=== PATIENT | male | born 1955 | race Caucasian/White ===

== ENCOUNTER 2024-11-29 09:13 | Emergency (ER) | payer OTHER ==
[2024-11-29 11:59] LABS: Urine Bilirubin NEGATIVE (Negative); Urine Blood Negative (Negative); Urine Clarity Clear (Clear); Urine Color Light-Yellow (Yellow); Urine Glucose NEGATIVE (Negative); Urine Ketones NEGATIVE (Negative); Urine Microscopic Reflex YN NO UMIC; Urine Nitrite NEGATIVE (Negative); Urine Protein NEGATIVE (Negative); Urine Urobilinogen Normal (Normal)
[2024-11-29] MEDS ORDERED: ONDANSETRON 4 MG/2 ML VIAL ONE (12:02)
[2024-11-29] MEDS ORDERED: NA CHLORIDE 0.9% 1,000 ML ONE (12:03)
[2024-11-29] MEDS ORDERED: FAMOTIDINE 20 MG/2 ML VIAL IV ONE (12:03)
[2024-11-29 12:04] LABS: Absolute Lymphocytes (CBC) 0.7 K/uL (0.7-4.9); Absolute Monocytes 0.4 K/uL (0.1-1.3); Absolute Neutrophil 11.8 K/uL (1.8-8.0); Basophils % 0.3 % (0-1.3); Eosinophils % 0.3 % (0-4.4); Hematocrit 43.8 % (39.6-49.0); Hemoglobin 14.7 g/dL (13.6-17.9); Lymphocytes % 5.1 % (15.3-44.8); MCH 31.4 pg (27.0-35.0); MCHC 33.6 g/dL (32.0-36.0); MCV 93.4 fL (80-100); MPV 7.9 fL (7.6-11.3); Monocytes % 3.3 % (3.3-12.3); Platelets 296 thou/uL (152-406); RBC Red Blood Cell Count 4.69 M/uL (4.33-5.43); Red Cell Distribution Width 15.1 % (12.1-15.2)
[2024-11-29 12:15] LABS: Albumin 3.5 g/dL (3.4-5.0); Albumin/Globulin Ratio 0.9 (1.1-1.8); Anion Gap 6.9 mEq/L (5.0-15.0); Bilirubin Total 0.9 mg/dL (0.2-1.0); Globulin 4.1 g/dL (2.3-3.5); Potassium 3.9 mEq/L (3.5-5.1); Protein, Total 7.6 g/dL (6.4-8.2)
[2024-11-29 13:02] LABS: Blood Morphology Comment NOT SEEN (NOT SEEN); Platelet Estimate ADEQ; Platelets, Giant NOTED; White Blood Cell Scan OK (OK)
--- NOTE | 2024-11-29 13:22 | RAD REPORT ---
EXAMINATION: CT Abdomen Pelvis W Contrast CLINICAL INDICATION: Male, 69 years old. ABD PAIN TECHNIQUE: CT abdomen and pelvis was performed, after the administration of IV contrast, [facility]. Axial, sagittal and coronal reconstructions were obtained. One or more of the following dose reduction techniques were used: Automated exposure control, adjustment of the mA and k V according to patient size, and iterative reconstruction. Unless otherwise specified, incidental findings do not require dedicated imaging follow-up. COMPARISON: No prior exam. FINDINGS: LOWER CHEST: The visualized lung bases are clear apart from subpleural left lower lobe 3 mm nodule, p robably benign given size. LIVER: Normal in size and contour. No focal lesion. BILIARY SYSTEM: No suspicious abnormalities. SPLEEN: Normal size. No focal lesion. PANCREAS: No mass, ductal dilation, or keshawn-pancreatic fluid. ADRENALS: Normal; no mass. KIDNEYS: Normal size and contour. No hydronephrosis. 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 URINARY BLADDER: Unremarkable. GASTROINTESTINAL TRACT: No evidence of free air, significant intra-abdominal free fluid, bowel obstru ction or abscess. Distal colonic diverticulosis without evidence of acute diverticulitis. APPENDIX: Normal appendix. LYMPH NODES: No lymphadenopathy. MUSCULOSKELETAL: No acute or suspicious osseous abnormality. ADDITIONAL FINDINGS: Mild fusiform aneurysmal dilation of the distal abdominal aorta just above the l evel of the bifurcation measuring up to 2.5 cm in caliber. Small hydrocele at least on the right. IMPRESSION: No acute abnormalities seen in the abdomen or pelvis. Incidental findings including colonic diverticulosis without evidence of acute diverticulitis, mild d istal abdominal aortic fusiform aneurysmal dilation, bilateral nonobstructing small renal calculi, and a small right hydrocele.
--- NOTE | 2024-11-29 13:47 | EDPHYS ---
Physician Documentation [facility] Name: Serjio Barreto Age: 69 yrs Sex: Male : 1955 Arrival Date: 11/29/2024 Time: 09:13 Bed 24 Private MD: ED Physician Julio C Oquendo HPI: 11/29 12:15 This 69 yrs old Male presents to ER via Ambulatory with complaints of hernia. ronnell 12:15 The patient presents with abdominal pain in the lower abdomen. Onset: The ronenll symptoms/episode began/occurred just prior to arrival, this morning. The symptoms do not radiate. Associated signs and symptoms: none. The symptoms are described as sharp. Modifying factors: The symptoms are alleviated by remaining still, supine position, the symptoms are aggravated by movement, pressure, touching the area, walking. Severity of pain: At its worst the pain was moderate in the emergency department the pain has improved self reduced. The patient has not experienced similar symptoms in the past. Historical: - Allergies: 10:15 No Known Allergies; iw - PMHx: 10:15 Hypercholesterolemia; GERD; iw - PSHx: 10:16 hernia; iw - Immunization history:: Adult Immunizations unknown. - Infectious Disease History:: Denies. - Social history:: Smoking status: Patient reports the use of cigarette tobacco products, smokes one pack cigarettes per day. - Family history:: not pertinent. ROS: 12:15 Constitutional: Negative for fever, chills, and weight loss, Eyes: Negative for injury, ronnell pain, redness, and discharge, ENT: Negative for injury, pain, and discharge, Neck: Negative for injury, pain, and swelling, Cardiovascular: Negative for chest pain, palpitations, and edema, Respiratory: Negative for shortness of breath, cough, wheezing, and pleuritic chest pain, Back: Negative for injury and pain, : Negative for injury, bleeding, discharge, and swelling, MS/Extremity: Negative for injury and deformity, Skin: Negative for injury, rash, and discoloration, Neuro: Negative for headache, weakness, numbness, tingling, and seizure, Psych: Negative for depression, anxiety, suicide ideation, homicidal ideation, and hallucinations, Allergy/Immunology: Negative for hives, rash, and allergies, Endocrine: Negative for neck swelling, polydipsia, polyuria, polyphagia, and marked weight changes, Hematologic/Lymphatic: Negative for swollen nodes, abnormal bleeding, and unusual bruising, 12:15 Abdomen/GI: Positive for abdominal pain, of the left lower quadrant, Exam: 12:18 Constitutional: This is a well developed, well nourished patient who is awake, alert, ronnell and in no acute distress. Head/Face: Normocephalic, atraumatic. Eyes: Pupils equal round and reactive to light, extra-ocular motions intact. Lids and lashes normal. Conjunctiva and sclera are non-icteric and not injected. Cornea within normal limits. Periorbital areas with no swelling, redness, or edema. ENT: Nares patent. No nasal discharge, no septal abnormalities noted. Tympanic membranes are normal and external auditory canals are clear. Oropharynx with no redness, swelling, or masses, exudates, or evidence of obstruction, uvula midline. Mucous membranes moist. Neck: Trachea midline, no thyromegaly or masses palpated, and no cervical lymphadenopathy. Supple, full range of motion without nuchal rigidity, or vertebral point tenderness. No Meningismus. Chest/axilla: Normal chest wall appearance and motion. Nontender with no deformity. No lesions are appreciated. Cardiovascular: Regular rate and rhythm with a normal S1 and S2. No gallops, murmurs, or rubs. Normal PMI, no JVD. No pulse deficits. Respiratory: Lungs have equal breath sounds bilaterally, clear to auscultation and percussion. No rales, rhonchi or wheezes noted. No increased work of breathing, no retractions or nasal flaring. Back: No spinal tenderness. No costovertebral tenderness. Full range of motion. Male : Normal genitalia with no discharge or lesions. Skin: Warm, dry with normal turgor. Normal color with no rashes, no lesions, and no evidence of cellulitis. MS/ Extremity: Pulses equal, no cyanosis. Neurovascular intact. Full, normal range of motion., bilateral aka Neuro: Awake and alert, GCS 15, oriented to person, place, time, and situation. Cranial nerves II-XII grossly intact. Motor strength 5/5 in all extremities. Sensory grossly intact. Cerebellar exam normal. Normal gait. Psych: Awake, alert, with orientation to person, place and time. Behavior, mood, and affect are within normal limits. 12:18 Abdomen/GI: Inspection: abdomen appears normal, Bowel sounds: normal, Palpation: abdomen is soft and non-tender, Rectal exam: the exam is deferred, not needed, Liver: no appreciated palpable abnormalities, Hernia: not appreciated, Vital Signs: 10:14 BP 120 / 79; Pulse 73; Resp 18; Temp 97.8; Pulse Ox 100% on R/A; Weight 68.04 kg; iw Height 6 ft. 1 in. ; 12:05 BP 128 / 86; Pulse 70; Resp 16; Pulse Ox 98% ; me1 13:00 BP 130 / 86; Pulse 70; Resp 16; Pulse Ox 98% ; me1 13:55 BP 132 / 79; Pulse 68; Resp 16; Temp 98.4; Pulse Ox 100% ; me1 10:14 Body Mass Index 19.79 (68.04 kg, 185.42 cm) iw MDM: 09:50 Medical Screening Exam initiated ronnell 12:19 Differential diagnosis: bowel obstruction, diverticulitis, non-specific abd pain, ronnell pancreatitis, Peptic Ulcer Disease, Prostatitis, Testicular Torsion, Ureterolithiasis, urinary tract infection, hernia, self reduced. Data reviewed: vital signs, nurses notes, lab test result(s), radiologic studies, CT scan. Consideration of Admission/Observation Escalation of care including admission/observation considered. Independent interpretation of the following test(s) in the Emergency Department CT Scan: My interpretation is ct ab/pel. Test considered but Not performed: Ultrasound no abd usg. Care significantly affected by the following chronic conditions: gerd, high chlesterol. 11/29 09:51 Order name: CBC with Diff; Complete Time: 13:22 [facility] 11/29 09:51 Order name: CMP; Complete Time: 13:22 [facility] 11/29 09:51 Order name: Lipase; Complete Time: 13:22 ronnell 11/29 09:51 Order name: Urinalysis w/ reflexes; Complete Time: 12:14 ronnell 11/29 13:00 Order name: CBC Smear Scan; Complete Time: 13:22 EDMS 11/29 09:51 Order name: CT Abd/Pelvis - IV Contrast Only; Complete Time: 13:47 ronnell 11/29 09:51 Order name: IV Saline Lock; Complete Time: 11:53 ronnell 11/29 09:51 Order name: Labs collected and sent; Complete Time: 11:53 ronnell Administered Medications: 12:11 Drug: Famotidine IVP 20 mg IVP once; dilute with 10 mL 0.9% NaCl; give over 2 minutes me1 Route: IVP; Site: right antecubital; 13:04 Follow up: Response: No adverse reaction me1 12:11 Drug: Ondansetron IVP 4 mg IVP once; over 2 minutes Route: IVP; Site: right antecubital;me1 13:04 Follow up: Response: No adverse reaction; Nausea is decreased me1 12:11 Drug: NS 0.9% IV 1000 ml IV at 1 bolus Per protocol; to be given as a bolus over 60 me1 minutes Route: IV; Rate: 1 bolus; Site: right antecubital; 13:55 Follow up: Response: No adverse reaction; IV Status: Completed infusion; IV Intake: me1 1000ml 12:11 Not Given (Patient Refused; pain has resolvedd): morphineor iv 2 mg IVP once over 4 minsme1 Disposition Summary: 11/29/24 13:47 Discharge Ordered Notes: Location: Home ronnell Problem: new ronnell Symptoms: have improved ronnell Condition: Stable ronnell Diagnosis - Unilateral inguinal hernia, without obstruction or gangrene - reduced ronnell Followup: ronnell - With: Private Physician - When: 2 - 3 days - Reason: Recheck today's complaints, Continuance of care, Re-evaluation by your physician Followup: ronnell - With: Christiano Hood MD - When: 2 - 3 days - Reason: Recheck today's complaints, Re-evaluation by your physician Discharge Instructions: - Discharge Summary Sheet ronnell - Hernia, Adult ronnell - Inguinal Hernia, Pediatric ronnell - Inguinal Hernia, Adult, [id number] ronnell - Hernia, Adult, [id number] ronnell Forms: - Medication Reconciliation Form ronnell - Antibiotic Education ronnell - Prescription Opioid Use ronnell - Patient Portal Instructions ronnell - Leadership Thank You Letter ronnell Signatures: Dispatcher [employer] Julio C Lucio MD MD cha Williams, Irene, QUIANA RN Valentina Magana RN RN me1 Corrections: (The following items were deleted from the chart) 09:51 09:51 Abdomen Pelvis W Con+CT.RAD.BRZ ordered. MIREILLEMN JASON 10:15 10:15 Home Meds: None; iw iw 10:15 10:15 PMHx: None; iw iw
--- NOTE | 2024-11-29 13:47 | ER ---
Nurse's Notes [facility] Name: Serjio Barreto Age: 69 yrs Sex: Male : 1955 Arrival Date: 11/29/2024 Time: 09:13 Bed 24 Private MD: Diagnosis: Unilateral inguinal hernia, without obstruction or gangrene-reduced Presentation: 11/29 10:14 Chief complaint: Patient states: felt a bulge in left groin area this morning while iw having a BM, the bulge has gone down and I feel better. Coronavirus screen: At this time, the client does not indicate any symptoms associated with coronavirus-19. Ebola Screen: No symptoms or risks identified at this time. Initial Sepsis Screen: Does the patient meet any 2 criteria? No. Patient's initial sepsis screen is negative. Does the patient have a suspected source of infection? No. Patient's initial sepsis screen is negative. Risk Assessment: Do you want to hurt yourself or someone else? Patient reports no desire to harm self or others. Onset of symptoms was November 29, 2024. 10:14 Method Of Arrival: Ambulatory iw 10:14 Acuity: LIAN 3 iw Historical: - Allergies: 10:15 No Known Allergies; iw - PMHx: 10:15 Hypercholesterolemia; GERD; iw - PSHx: 10:16 hernia; iw - Immunization history:: Adult Immunizations unknown. - Infectious Disease History:: Denies. - Social history:: Smoking status: Patient reports the use of cigarette tobacco products, smokes one pack cigarettes per day. - Family history:: not pertinent. Screenin:12 [facility] ED Fall Risk Assessment (Adult) History of falling in the last 3 months, me1 including since admission No falls in past 3 months (0 pts) Confusion or Disorientation No (0 pts) Intoxicated or Sedated No (0 pts) Impaired Gait No (0 pts) Mobility Assist Device Used No (0 pt) Altered Elimination No (0 pt) Score/Fall Risk Level 0 - 2 = Low Risk Maintained a safe environment, Provided non-skid footwear, Hourly rounding (assess needs \T\ fall precautionary measures) done. Abuse screen: Denies threats or abuse. Nutritional screening: No deficits noted. Tuberculosis screening: No symptoms or risk factors identified. Assessment: 12:12 General: Appears comfortable, well groomed, well developed, well nourished, Behavior is me1 calm, cooperative, appropriate for age, Reports felt a bulge in left groin area this morning while having a BM, the bulge has gone down and I feel better. Pain: Denies pain. Neuro: Level of Consciousness is awake, alert, obeys commands, Oriented to person, place, time, situation, Appropriate for age. Cardiovascular: Patient's skin is warm and dry. Respiratory: Airway is patent Respiratory effort is even, unlabored, Respiratory pattern is regular, symmetrical. GI: Reports lower abdominal pain. : No signs and/or symptoms were reported regarding the genitourinary system. EENT: No signs and/or symptoms were reported regarding the EENT system. Derm: Skin is intact, is healthy with good turgor, Skin is pink, warm \T\ dry. Musculoskeletal: No signs and/or symptoms reported regarding the musculoskeletal system. Vital Signs: 10:14 BP 120 / 79; Pulse 73; Resp 18; Temp 97.8; Pulse Ox 100% on R/A; Weight 68.04 kg; iw Height 6 ft. 1 in. ; 12:05 BP 128 / 86; Pulse 70; Resp 16; Pulse Ox 98% ; me1 13:00 BP 130 / 86; Pulse 70; Resp 16; Pulse Ox 98% ; me1 13:55 BP 132 / 79; Pulse 68; Resp 16; Temp 98.4; Pulse Ox 100% ; me1 10:14 Body Mass Index 19.79 (68.04 kg, 185.42 cm) ED Course: 09:47 Patient arrived in ED. mr 09:50 Julio C Oquendo MD is Attending Physician. ronnell 10:15 Triage completed. iw 11:53 CBC with Diff Sent. zm 11:53 CMP Sent. zm 11:53 Lipase Sent. zm 11:53 Urinalysis w/ reflexes Sent. zm 11:53 Initial lab(s) drawn, by me, sent to lab. Inserted saline lock: 20 gauge in right zm antecubital area, using aseptic technique. Blood collected. Flushed with 10 mL NS. 11:59 Valentina Magana, RN is Primary Nurse. me1 12:12 No provider procedures requiring assistance completed. me1 12:12 Patient has correct armband on for positive identification. Bed in low position. Call me1 light in reach. Side rails up X 1. Provided Education on: POC. Verbalized understanding.. Client placed on continuous cardiac and pulse oximetry monitoring. NIBP monitoring applied. Pulse ox on. NIBP on. 12:32 CT Abd/Pelvis - IV Contrast Only In Process Unspecified. EDNH 13:47 Christiano Hood MD is Referral Physician. [facility] 13:55 Arm band placed on Patient placed in an exam room. me1 14:00 IV discontinued, intact, bleeding controlled, No redness/swelling at site. Pressure me1 dressing applied. Administered Medications: 12:11 Drug: Famotidine IVP 20 mg IVP once; dilute with 10 mL 0.9% NaCl; give over 2 minutes me1 Route: IVP; Site: right antecubital; 13:04 Follow up: Response: No adverse reaction me1 12:11 Drug: Ondansetron IVP 4 mg IVP once; over 2 minutes Route: IVP; Site: right antecubital;me1 13:04 Follow up: Response: No adverse reaction; Nausea is decreased me1 12:11 Drug: NS 0.9% IV 1000 ml IV at 1 bolus Per protocol; to be given as a bolus over 60 me1 minutes Route: IV; Rate: 1 bolus; Site: right antecubital; 13:55 Follow up: Response: No adverse reaction; IV Status: Completed infusion; IV Intake: me1 1000ml 12:11 Not Given (Patient Refused; pain has resolvedd): morphineor iv 2 mg IVP once over 4 minsme1 Medication: 12:12 VIS not applicable for this client. me1 Intake: 13:55 IV: 1000ml; Total: 1000ml. me1 Outcome: 13:47 Discharge ordered by . [facility] 14:00 Discharged to home ambulatory, me1 14:00 Condition: stable 14:00 Discharge instructions given to patient, Instructed on discharge instructions, follow up and referral plans. Demonstrated understanding of instructions, follow-up care, 14:00 Patient left the ED. me1 Signatures: Dispatcher [employer] EDNH Julio C Oquendo MD MD cha Rivera, Mary, Reg Reg mr Tami Hirsch, QUIANA RN Marga De La Cruz Michelle, RN RN me1 Corrections: (The following items were deleted from the chart) 10:15 10:15 Home Meds: None; iw wen 10:15 10:15 PMHx: None; iw iw 12:12 10:14 Chief complaint: Patient states: felt a bulge in left groin area this morning me1 while having a BM, the bulge has gone down and I feel better iw
[2024-11-29 14:41] VITALS: BP 132/79; TEMP 98.4; O2SAT 100
== END 2024-11-29 14:00 | disposition home or self-care (01) ==
LOC: ER 09:13
DX: K40.90 Unilateral inguinal hernia, without obstruction or gangrene, not specified as recurrent (principal); F17.210 Nicotine dependence, cigarettes, uncomplicated
CPT/HCPCS: 96361; 85025; 36415; 81003; 83690; 80053; 74177; 96375; 96374; 99284; Q9967; J2405; J7030